=== PATIENT | male | born 1995 | race American Indian/Alaskan Native ===

== ENCOUNTER 2017-06-21 15:05 | Emergency (ER) | payer SELFPAY ==
--- NOTE | 2017-06-21 18:26 | Emergency Department Report ---
Chief Complaint: Upper Respiratory Infection Stated Complaint: COUGH Time Seen by Provider: 06/21/17 18:25 - HPI History of Present Illness: Pt is a 21 yo male here for - Exam Vital Signs: Vital Signs 06/21/17 15:08 Temperature 98.4 F Pulse Rate 77 Respiratory 18 Rate Blood Pressure 143/101 O2 Sat by Pulse 100 Oximetry MSE screening note: Focused history and physical exam performed. Due to findings the following was ordered: ED Disposition for MSE Condition: Stable Referrals: PRIMARY CARE, [Primary Care Provider] - 3-5 Days
[2017-06-21 19:48] VITALS: BP 136/84
--- NOTE | 2017-06-21 22:15 | Emergency Department Report ---
Minor Respiratory - HPI Chief Complaint: Upper Respiratory Infection Stated Complaint: COUGH Time Seen by Provider: 06/21/17 18:25 Minor Respiratory: Yes Able to Tolerate Fluids, Yes Cough, No Rhinorrhea, No Sore Throat, No Ear Pain, No Sick Contacts, No Hemoptysis, No Chest Pain, No Shortness of Breath, No Fever Other History: This is a 21 y.o. male presents with a dry cough since December of last year. He is taking cough drops and cold and flu medications with no improvement of symptoms. History of HTN. Never followed up to start medication. Stopped smoking cigarettes last January. Denies fever, chest pain, SOB, night sweats, congestion, difficulty breathing, and rhinorrhea. ED Review of Systems ROS: Stated complaint: COUGH Other details as noted in HPI Constitutional: denies: chills, fever ENT: denies: ear pain, throat pain, congestion Respiratory: cough. denies: orthopnea, shortness of breath, SOB with exertion, SOB at rest, stridor, wheezing Cardiovascular: denies: chest pain, palpitations Gastrointestinal: denies: abdominal pain, nausea, diarrhea Neurological: denies: headache, weakness, paresthesias ED Past Medical Hx - Past Medical History Previous Medical History?: No Hx Hypertension: Yes - Surgical History Past Surgical History?: No - Social History Smoking Status: Never Smoker Substance Use Type: None - Medications Home Medications: Home Medications Medication Instructions Recorded Confirmed Last Taken Type Omeprazole 40 mg PO DAILY #30 capsule. 06/21/17 Unknown Rx Minor Respiratory Exam - Exam General: Vital signs noted. No distress. Alert and acting appropriately. HEENT: Yes Moist Mucous Membranes, No Pharyngeal Erythema, No Pharyngeal Exudates, No Rhinorrhea, No Conjuctival Injection, No Frontal Tenderness, No Maxillary Tenderness Ear: Neither TM Bulge, Neither TM Erythema, Neither EAC Pain, Neither EAC Discharge Neck: Yes Supple, No Adenopathy Lungs: Yes Good Air Exchange, Yes Cough, No Wheezes, No Ronchi, No Stridor, No Labored Respirations, No Retractions, No Use of Accessory Muscles, No Other Abnormal Lung Sounds Heart: Yes Regular, No Murmur Abdomen: Yes Normal Bowel Sounds, No Tenderness, No Peritoneal Signs Skin: No Rash, No Edema Neurologic: Alert and oriented, no deficits. Musculoskeletal: Unremarkable. ED Course Vital Signs 02/03/18 02/03/18 15:08 19:43 Temperature 98.4 F Pulse Rate 77 69 Respiratory 18 18 Rate Blood Pressure 143/101 136/84 O2 Sat by Pulse 100 100 Oximetry ED Medical Decision Making - Radiology Data Radiology results: image reviewed CXR normal exam - Medical Decision Making This is a 21 y.o. male presents with cough for 6 months. Former smoker, quit 4 months ago, 2 cigarettes a day. Denies SOB, fever, congestion, difficulty breathing, and rhinorrhea. Patient is stable and was examined by me. Chest Xray obtained and normal. Discharged home for outpatient follow up with primary care provider. Start trial of omeprazole to r/o GERD. Patient agrees with ED plan of care. Referred to [facility]. Critical care attestation.: If time is entered above; I have spent that time in minutes in the direct care of this critically ill patient, excluding procedure time. ED Disposition Clinical Impression: Chronic cough Disposition: DC-01 TO HOME OR SELFCARE Is pt being admited?: No Does the pt Need Aspirin: No Condition: Stable Instructions: Chronic Cough (ED) Additional Instructions: Follow up with [facility] for further evaluation. Take medication as prescribed daily. Prescriptions: Omeprazole 40 mg PO DAILY #30 capsule. Referrals: [facility] [Outside] - 3-5 Days [facility] [Outside] - 3-5 Days Time of Disposition: 23:44 Print Language: DANISH
--- NOTE | 2017-06-21 23:28 | XRay Report ---
FINAL REPORT PROCEDURE: XR CHEST ROUTINE 2V TECHNIQUE: PA and lateral chest radiographs were obtained. CPT 58654 HISTORY: chronic cough COMPARISON: No prior studies are available for comparison. FINDINGS: Heart: Normal. Mediastinum/Vessels: Normal. Lungs/Pleural space: Normal. Bony thorax: No acute osseous abnormality. Other: IMPRESSION: Normal examination.
== END 2017-06-22 00:08 | disposition home or self-care (01) ==
LOC: ED 15:05
DX: R05 Cough (principal); I10 Essential (primary) hypertension; Z87.891 Personal history of nicotine dependence
CPT/HCPCS: 71046; 99283